=== PATIENT | female | born 1955 | race Two or more races ===

== ENCOUNTER 2020-07-15 07:48 | Outpatient (CLI) | payer OTHER ==
[2020-07-18] MEDS ORDERED: HUMULIN 70100 UNIT/2 (11:56)
[2020-07-18] MEDS ORDERED: FORTAMET1000 MG (11:57)
[2020-07-18] MEDS ORDERED: CHILDREN'S ASPI81 MG (11:57)
[2020-07-18] MEDS ORDERED: DILTIAZEM (11:57)
[2020-07-18] MEDS ORDERED: CLONAZEPAM2 MG (11:58)
[2020-07-18] MEDS ORDERED: EFFESOR (11:58)
[2020-07-18] MEDS ORDERED: TRAZODONE HCL100 MG (11:58)
[2020-07-18] MEDS ORDERED: NEURONTIN (11:58)
[2020-07-18] MEDS ORDERED: PLETAL (11:59)
[2020-07-18] MEDS ORDERED: LIPITOR40 M1 (11:59)
[2020-07-18] MEDS ORDERED: HYDRALAZINE HCL25 MG (12:02)
[2020-07-18] MEDS ORDERED: ATACAND32 MG (12:02)
[2020-07-18] MEDS ORDERED: SINGULAIR10 MG (12:03)
[2020-07-18] MEDS ORDERED: PRILOSEC OTC20 MG (12:03)
[2020-07-18] MEDS ORDERED: TREXIMET 85-501 EACH (12:04)
[2020-07-18] MEDS ORDERED: NITROSTAT0.4 MG (12:04)
== END 2020-07-15 15:00 | disposition home or self-care (01) ==
LOC: LAB 07:48
PROVIDERS: ATTEND Obstetrics & Gynecology Gynecology
DX: Z20.828 Contact with and (suspected) exposure to other viral communicable diseases (principal)

== ENCOUNTER 2020-07-22 07:29 | Day surgery (SDC) | payer OTHER ==
[~2020-07-22 07:29] MED LIST: ATACAND32 MG; CHILDREN'S ASPI81 MG; CLONAZEPAM2 MG; DILTIAZEM; EFFESOR; FORTAMET1000 MG; HUMULIN 70100 UNIT/2; HYDRALAZINE HCL25 MG; LIPITOR40 M1; NEURONTIN; NITROSTAT0.4 MG; PLETAL; PRILOSEC OTC20 MG; SINGULAIR10 MG; TRAZODONE HCL100 MG; TREXIMET 85-501 EACH
[2020-07-22] MEDS ORDERED: ULTRACET PO (13:32)
[2020-07-22] MEDS ORDERED: MACROBID 100 M100 MG PO (13:32)
== END 2020-07-22 17:45 | disposition home or self-care (01) ==
LOC: CIR.AMB 07:29
PROVIDERS: ATTEND Obstetrics & Gynecology Gynecology
DX: N81.3 Complete uterovaginal prolapse (principal)